=== PATIENT | female | born 2000 | race Caucasian/White ===

== ENCOUNTER 2022-02-15 16:22 | Emergency (ER) | payer OTHER ==
[~2022-02-15] VITALS: Ht 172.7 cm; Wt 90.7 kg
== END 2022-02-15 20:22 | disposition home or self-care (01) ==
LOC: FER 16:22
DX: S01.111A Laceration without foreign body of right eyelid and periocular area, initial encounter (principal); S50.311A Abrasion of right elbow, initial encounter; W26.8XXA Contact with other sharp object(s), not elsewhere classified, initial encounter; V86.99XA Unspecified occupant of other special all-terrain or other off-road motor vehicle injured in nontraffic accident, initial encounter
CPT/HCPCS: 73080